=== PATIENT | female | born 1955 | race Caucasian/White ===

== ENCOUNTER 2020-05-07 12:00 | Outpatient (CLI) | payer MEDICARE | END 2020-05-07 23:59 | disposition home health service (06) | LOC: WOU 12:00 | PROVIDERS: ATTEND Podiatrist Foot & Ankle Surgery | DX: T81.89XD Other complications of procedures, not elsewhere classified, subsequent encounter (principal); E11.42 Type 2 diabetes mellitus with diabetic polyneuropathy; E11.69 Type 2 diabetes mellitus with other specified complication; M86.371 Chronic multifocal osteomyelitis, right ankle and foot; Z79.4 Long term (current) use of insulin; Z79.82 Long term (current) use of aspirin | CPT/HCPCS: A6253; G0463 ==

== ENCOUNTER → 2020-05-14 | Outpatient (CLI) | payer MEDICARE | END | disposition home health service (06) | LOC: WOU 12:45 | PROVIDERS: ATTEND Podiatrist Foot & Ankle Surgery | DX: T81.89XD Other complications of procedures, not elsewhere classified, subsequent encounter (principal); E11.42 Type 2 diabetes mellitus with diabetic polyneuropathy; E11.69 Type 2 diabetes mellitus with other specified complication; M86.371 Chronic multifocal osteomyelitis, right ankle and foot; Z79.4 Long term (current) use of insulin; Z79.82 Long term (current) use of aspirin | CPT/HCPCS: 11042; A6253; G0463 ==

== ENCOUNTER 2020-05-30 11:30 | Outpatient (CLI) | payer MEDICARE ==
[2020-05-30] MEDS ORDERED: PHENYLEPHRINE 0.5% NASAL SPRAY 15 ML BOTTLE NS ONE (12:40)
== END 2020-05-30 23:59 | disposition home health service (06) ==
LOC: WOU 11:30
PROVIDERS: ATTEND Podiatrist Foot & Ankle Surgery
DX: T81.89XA Other complications of procedures, not elsewhere classified, initial encounter (principal); T86.828 Other complications of skin graft (allograft) (autograft); E11.42 Type 2 diabetes mellitus with diabetic polyneuropathy; E11.69 Type 2 diabetes mellitus with other specified complication; M86.371 Chronic multifocal osteomyelitis, right ankle and foot; Z79.4 Long term (current) use of insulin; Z79.82 Long term (current) use of aspirin
CPT/HCPCS: 11042; 11045

== ENCOUNTER 2020-06-06 10:00 | Outpatient (CLI) | payer MEDICARE, MEDICAID ==
[2020-06-06] MEDS ORDERED: MUPIROCIN 2% CREAM 15 GM TUBE TP ONE (10:12)
== END 2020-06-06 23:59 | disposition home health service (06) ==
LOC: WOU 10:00
PROVIDERS: ATTEND Podiatrist Foot & Ankle Surgery
DX: T81.89XA Other complications of procedures, not elsewhere classified, initial encounter (principal); E11.42 Type 2 diabetes mellitus with diabetic polyneuropathy; M86.371 Chronic multifocal osteomyelitis, right ankle and foot; E11.69 Type 2 diabetes mellitus with other specified complication; L89.896 Pressure-induced deep tissue damage of other site; Z79.4 Long term (current) use of insulin; Z79.82 Long term (current) use of aspirin
CPT/HCPCS: 11043

== ENCOUNTER 2020-06-06 10:32 | Outpatient (CLI) | payer MEDICARE | END 2020-06-06 23:59 | disposition home or self-care (01) | LOC: LAB 10:32 | PROVIDERS: ATTEND Podiatrist Foot & Ankle Surgery | DX: Z01.812 Encounter for preprocedural laboratory examination (principal); Z20.828 Contact with and (suspected) exposure to other viral communicable diseases | CPT/HCPCS: C9803; U0003 ==

== ENCOUNTER 2020-06-25 13:00 | Outpatient (CLI) | payer MEDICARE ==
[2020-06-25] MEDS ORDERED: COLLAGENASE 5 GM TUBE UD TP ONE (13:52)
== END 2020-06-25 23:59 | disposition home health service (06) ==
LOC: WOU 13:00
PROVIDERS: ATTEND Podiatrist Foot & Ankle Surgery
DX: L89.614 Pressure ulcer of right heel, stage 4 (principal); L89.626 Pressure-induced deep tissue damage of left heel; L89.896 Pressure-induced deep tissue damage of other site; E11.42 Type 2 diabetes mellitus with diabetic polyneuropathy; E11.69 Type 2 diabetes mellitus with other specified complication; M86.371 Chronic multifocal osteomyelitis, right ankle and foot; Z79.4 Long term (current) use of insulin; Z79.82 Long term (current) use of aspirin
CPT/HCPCS: 11043

== ENCOUNTER 2020-07-01 10:32 | Outpatient (CLI) | payer MEDICARE, MEDICAID ==
[2020-07-01] MEDS ORDERED: COLLAGENASE 5 GM TUBE UD TP ONE (10:42)
== END 2020-07-01 23:59 | disposition home health service (06) ==
LOC: WOU 10:32
PROVIDERS: ATTEND Podiatrist Foot & Ankle Surgery
DX: L89.614 Pressure ulcer of right heel, stage 4 (principal); L89.626 Pressure-induced deep tissue damage of left heel; L89.896 Pressure-induced deep tissue damage of other site; E11.42 Type 2 diabetes mellitus with diabetic polyneuropathy; E11.69 Type 2 diabetes mellitus with other specified complication; M86.371 Chronic multifocal osteomyelitis, right ankle and foot; Z79.4 Long term (current) use of insulin; Z79.82 Long term (current) use of aspirin
CPT/HCPCS: 11043

== ENCOUNTER 2020-07-09 13:05 | Outpatient (CLI) | payer MEDICARE, MEDICAID ==
[2020-07-09] MEDS ORDERED: COLLAGENASE 5 GM TUBE UD TP ONE (13:58)
[2020-07-09] MEDS ORDERED: BACI/NEOM/POLY B OINT PKT 1 UDPKT PACKET ONE (13:59)
[2020-07-09] MEDS ORDERED: DEXAMETHASONE SOD PHOSPHATE 10 MG/ML VIAL ONE (20:35)
[2020-07-09] MEDS ORDERED: ACETAMINOPHEN 650 MG/SUPP.RECT RC ONE (20:36)
== END 2020-07-09 23:59 | disposition home health service (06) ==
LOC: WOU 13:05
PROVIDERS: ATTEND Podiatrist Foot & Ankle Surgery
DX: T81.89XD Other complications of procedures, not elsewhere classified, subsequent encounter (principal); L89.622 Pressure ulcer of left heel, stage 2; L89.614 Pressure ulcer of right heel, stage 4; L89.896 Pressure-induced deep tissue damage of other site; E11.42 Type 2 diabetes mellitus with diabetic polyneuropathy; E11.69 Type 2 diabetes mellitus with other specified complication; M86.371 Chronic multifocal osteomyelitis, right ankle and foot; Z79.4 Long term (current) use of insulin; Z79.82 Long term (current) use of aspirin
CPT/HCPCS: 11042; 11043; J1100

== ENCOUNTER 2020-07-16 13:20 | Outpatient (CLI) | payer MEDICARE, MEDICAID ==
[2020-07-16] MEDS ORDERED: UREA 10% -AHA 4% CREAM 57 GM TUBE ONE (13:41)
[2020-07-16] MEDS ORDERED: COLLAGENASE 5 GM TUBE UD TP ONE (14:02)
== END 2020-07-16 23:59 | disposition home health service (06) ==
LOC: WOU 13:20
PROVIDERS: ATTEND Podiatrist Foot & Ankle Surgery
DX: L89.614 Pressure ulcer of right heel, stage 4 (principal); L89.896 Pressure-induced deep tissue damage of other site; T81.89XD Other complications of procedures, not elsewhere classified, subsequent encounter; E11.42 Type 2 diabetes mellitus with diabetic polyneuropathy; E11.69 Type 2 diabetes mellitus with other specified complication; M86.371 Chronic multifocal osteomyelitis, right ankle and foot; Z79.4 Long term (current) use of insulin; Z79.82 Long term (current) use of aspirin
CPT/HCPCS: 11043

== ENCOUNTER 2020-07-23 13:30 | Outpatient (CLI) | payer MEDICARE, MEDICAID ==
[~2020-07-23 13:30] MED LIST: COLLAGENASE 5 GM TUBE UD TP ONE
== END 2020-07-23 23:59 | disposition home health service (06) ==
LOC: WOU 13:30
PROVIDERS: ATTEND Podiatrist Foot & Ankle Surgery
DX: L89.614 Pressure ulcer of right heel, stage 4 (principal); L89.896 Pressure-induced deep tissue damage of other site; T81.89XD Other complications of procedures, not elsewhere classified, subsequent encounter; E11.42 Type 2 diabetes mellitus with diabetic polyneuropathy; Z79.4 Long term (current) use of insulin; Z79.82 Long term (current) use of aspirin
CPT/HCPCS: 11043

== ENCOUNTER 2020-07-28 14:41 | Outpatient (CLI) | payer MEDICARE, MEDICAID | END 2020-07-28 23:59 | disposition home or self-care (01) | LOC: LAB 14:41 | PROVIDERS: ATTEND Podiatrist Foot & Ankle Surgery | DX: Z01.812 Encounter for preprocedural laboratory examination (principal); Z20.822 Contact with and (suspected) exposure to COVID-19 | CPT/HCPCS: 87426; C9803; U0003 ==

== ENCOUNTER 2020-07-31 05:35 | Inpatient (IN) | payer MEDICARE, OTHER ==
[~2020-07-31] VITALS: Ht 170.2 cm; Wt 99.8 kg
[2020-07-31 06:40] LABS: BASOPHILS # (AUTO) 0.1 /CMM (0.0-0.2); EOSINOPHILS % (AUTO) 2.3 % (0.0-6.0); HEMATOCRIT 34 % (33-45); LYMPHOCYTES # (AUTO) 1.9 /CMM (0.8-4.8); LYMPHOCYTES % (AUTO) 12.2 % (20.0-44.0); MEAN CORPUSCULAR HGB CONC 32 g/dl (31.0-36.0); MEAN CORPUSCULAR VOLUME 82 fL (82-100); MONOCYTES # (AUTO) 1.1 /CMM (0.1-1.30); MONOCYTES % (AUTO) 6.9 % (2.0-12.0); NEUTROPHILS % (AUTO) 77.6 % (43.0-81.0); PLATELET COUNT (AUTO) 430 /CMM (150-450); RED BLOOD CELL COUNT(AUTO) 4.19 MIL/uL (4.0-5.2); WHITE BLOOD COUNT (AUTO) 15.5 K/uL (4.3-11.0)
[2020-07-31] MEDS ORDERED: BACITRACIN 50000 UNITS/VIAL ONE (06:58)
[2020-07-31] MEDS ORDERED: LIDOCAINE 1% INJ 50 ML MDV IJ ONE (06:58)
[2020-07-31] MEDS ORDERED: ANESTHESIA TRAY IN PYXIS 1 EA TRAY MC ONE (06:58)
[2020-07-31] MEDS ORDERED: BUPIVACAINE 0.5 % PF 150 MG/30 ML VIAL ONE (06:58)
[2020-07-31 07:26] LABS: CALCIUM, SERUM 8.9 mg/dL (8.5-10.1); CREATININE 1.3 mg/dL (0.6-1.3); POTASSIUM 4.8 mmol/L (3.5-5.1)
[2020-07-31 09:00] VITALS: BP 109/90
[2020-07-31] MEDS ORDERED: CIPROFLOXACIN IV RTU 400 MG in PREMIX 1 EA IV SCH (09:00)
--- NOTE | 2020-07-31 09:10 | NUR ---
RN ADMITTING NOTE Patient arrived on unit by sb around 0900. A/O x4, showing no signs of acute distress or SOB, saturating 98% on room air. Vital signs stable. Patient has no c/o pain or discomfort at this time. S/P right foot debridement with Dr. Smith. Per Dr. Smith to insert new PICC line for the patient. Charge nurse made aware. Notified Dr. Holt for admitting orders and ok for patient to start CCHO diet. Will continue with admission process.
[2020-07-31] MEDS ORDERED: GLIM4TAB37 PO (10:04)
[2020-07-31] MEDS ORDERED: ASPI-1420 PO (10:04)
[2020-07-31] MEDS ORDERED: FOLI0.8T PO (10:04)
[2020-07-31] MEDS ORDERED: HYDR-4077 PO (10:04)
[2020-07-31] MEDS ORDERED: LOSA50TA39 PO (10:04)
[2020-07-31] MEDS ORDERED: CARV25TA2 PO (10:04)
[2020-07-31] MEDS ORDERED: FERR324T PO (10:04)
[2020-07-31] MEDS ORDERED: SIMV-46 PO (10:04)
[2020-07-31] MEDS ORDERED: LEVE250T4 PO (10:04)
[2020-07-31] MEDS ORDERED: METF-441 PO (10:04)
[2020-07-31] MEDS ORDERED: HYDR12.55 PO (10:04)
[2020-07-31] MEDS ORDERED: Z GUARD REMEDY 2 OZ OINT TP PRN (10:30)
[2020-07-31] MEDS ORDERED: MAG HYDROX/AL HYDROX/SIMETH 30 ML UDC PO PRN (10:30)
[2020-07-31] MEDS ORDERED: MAGNESIUM HYDROXIDE 30 ML UDC PO PRN (10:30)
[2020-07-31] MEDS ORDERED: ACETAMINOPHEN 325 MG TABLET PO PRN (10:30)
[2020-07-31] MEDS ORDERED: DEXTROSE 50%-WATER 50 ML DISP.SYRIN IV PRN (10:30)
[2020-07-31] MEDS ORDERED: ONDANSETRON HCL/PF 4 MG/2 ML VIAL IVP PRN (10:30)
[2020-07-31] MEDS: BLOOD SUGAR DIAGNOSTIC 1 EACH STRIP VI SCH ×3 (11:57→21:44)
[2020-07-31] MEDS: INSULIN REGULAR, HUMAN 100 UNIT/ML 3 ML VIAL SQ PRN ×3 (11:58→21:43)
[2020-07-31] MEDS: hydrALAZINE HCL 50 MG TABLET PO SCH ×2 (12:03→16:55)
[2020-07-31 16:00] VITALS: BP 149/74
[2020-07-31] MEDS: VANCOMYCIN 1.25 GM in IV D5W 250 ML IV SCH (16:48)
[2020-07-31] MEDS: LEVETIRACETAM (250 MG) 250 MG TABLET PO SCH (16:55)
[2020-07-31] MEDS: CARVEDILOL 12.5 MG TABLET PO SCH (16:55)
[2020-07-31 20:00] VITALS: BP 152/57
[2020-07-31] MEDS: HYDROCODONE/APAP 5/325MG TABLET PO PRN (21:36)
[2020-07-31] MEDS: SIMVASTATIN 20 MG TABLET PO SCH (21:36)
[2020-07-31] MEDS ORDERED: CEFEPIME 1 GM in IV D5W 50 ML IV SCH (22:00)
[2020-07-31] MEDS ORDERED: CEFEPIME 1 GM VIAL ONE (22:43)
--- NOTE | 2020-08-01 01:52 | NUR ---
vte score of 4 contacted oncall ghulam [facility] . inofrmed of score new order for lovenox recieved and scd to left leg.
[2020-08-01] MEDS: ENOXAPARIN SODIUM 40 MG/0.4 ML DISP.SYRIN SQ SCH ×2 (05:28→21:12)
--- NOTE | 2020-08-01 05:35 | NUR ---
pictures taken of rash under breasts and groin/perineal area added to chart; wound care consult ordered. pt states, "I have been having this problem when i was at the detention they were giving me cream for my rash, id like to have some later if that s possible." will endorse to am shift to bring up when doing am rounds with md.
[2020-08-01] MEDS: BLOOD SUGAR DIAGNOSTIC 1 EACH STRIP VI SCH ×4 (06:40→21:16)
[2020-08-01] MEDS: INSULIN REGULAR, HUMAN 100 UNIT/ML 3 ML VIAL SQ PRN ×3 (06:40→17:55)
[2020-08-01 06:46] LABS: BASOPHILS # (AUTO) 0.1 /CMM (0.0-0.2); BASOPHILS % (AUTO) 0.8 % (0.0-2.0); HEMATOCRIT 34 % (33-45); HEMOGLOBIN 10.8 g/dL (11.5-14.8); LYMPHOCYTES # (AUTO) 1.8 /CMM (0.8-4.8); LYMPHOCYTES % (AUTO) 14.8 % (20.0-44.0); MEAN CORPUSCULAR HGB CONC 32 g/dl (31.0-36.0); MEAN CORPUSCULAR VOLUME 83 fL (82-100); MONOCYTES # (AUTO) 1.3 /CMM (0.1-1.30); MONOCYTES % (AUTO) 10.8 % (2.0-12.0); NEUTROPHILS # (AUTO) 8.6 /CMM (1.8-8.9); NEUTROPHILS % (AUTO) 72.6 % (43.0-81.0); PLATELET COUNT (AUTO) 407 /CMM (150-450); RED BLOOD CELL COUNT(AUTO) 4.04 MIL/uL (4.0-5.2); WHITE BLOOD COUNT (AUTO) 11.9 K/uL (4.3-11.0)
--- NOTE | 2020-08-01 06:50 | NUR ---
RN PM CLOSING NOTE PT IN BED IN NO APPARENT DISTRESS, CALL LIGHT WITHIN REACH. PT DENIES PAIN. REVIEWED POC. WOUND CARE CONSULT PENDING, PT CONSULT PENDING. PT HAS PICC TO RIGHT UPPER ARM FLUSHED WORKING GOOD. DENIES PAIN. RESP EVEN AND UNLABORED WILL ENDORSE TO ONCOMING SHIFT.
[2020-08-01 07:01] LABS: ALBUMIN 2.6 g/dL (3.4-5.0); CREATININE 1.3 mg/dL (0.6-1.3); MAGNESIUM 1.7 mg/dL (1.8-2.4); PHOSPHORUS 3.8 mg/dL (2.5-4.9); POTASSIUM 4.8 mmol/L (3.5-5.1)
--- NOTE | 2020-08-01 07:50 | NUR ---
MS/RN OPENING NOTE RECEIVED PATIENT FROM GOLF BALL COVER TREATER NURSE. PATIENT IS AWAKE IN BED, A/O X4. PATIENT IN NO ACUTE DISTRESS NOTED. PATIENT ON ROOM AIR, TOLERATING WELL. BREATHING EVEN NON LABORED, NO SOB NOTED. YEISON PICC LINE INTACT AND PATENT. SAFETY MEASURES IN PLACE, BED LOCKED AND IN LOWEST POSITION, CALL LIGHT WITHIN REACH. WILL CONTINUE TO MONITOR AND ENSURE SAFETY.
[2020-08-01 08:00] VITALS: BP 140/69
--- NOTE | 2020-08-01 08:02 | NUR ---
WOUND CARE CONSULT: PT PRESENTS WITH RASH TO BREASTFOLDS, GROIN FOLDS, PERINEUM AND BUTTOCKS, PRESENT ON ADMISSION. RECOMMENDATIONS MADE FOR SKIN PROTECTION AND CARE. DISCUSSED WITH NURSING STAFF. DEFER TO DPM CURRENTLY ON CASE FOR WOUND TREATMENT PLAN RT FOOT. MD IN AGREEMENT WITH PLAN OF CARE.
[2020-08-01] MEDS ORDERED: FERROUS GLUCONATE 1 EA TABLET PO SCH (09:00)
[2020-08-01] MEDS: hydrALAZINE HCL 50 MG TABLET PO SCH ×4 (09:05→17:53)
[2020-08-01] MEDS: ASPIRIN EC 81 MG TABLET.DR PO SCH (09:05)
[2020-08-01] MEDS: CARVEDILOL 12.5 MG TABLET PO SCH ×2 (09:06→16:50)
[2020-08-01] MEDS: LOSARTAN POTASSIUM 50 MG TABLET PO SCH (09:07)
[2020-08-01] MEDS: FOLIC ACID 1 MG TABLET PO SCH (09:07)
[2020-08-01] MEDS: HYDROCHLOROTHIAZIDE 25 MG TABLET PO SCH (09:08)
[2020-08-01] MEDS: LEVETIRACETAM (250 MG) 250 MG TABLET PO SCH ×2 (09:08→16:49)
[2020-08-01] MEDS: CLOTRIMAZOLE 1% 15 GM TUBE TP SCH ×2 (09:20→16:49)
[2020-08-01] MEDS: CEFEPIME 2 GM in IV D5W 100 ML IV SCH ×2 (09:51→21:08)
[2020-08-01] MEDS: Magnesium 1GM/D5W 100ML PREMIX 100 ML IV SCH ×2 (10:51→12:03)
[2020-08-01] MEDS: VANCOMYCIN 1.25 GM in IV D5W 250 ML IV SCH (11:19)
--- NOTE | 2020-08-01 13:00 | NUR ---
MS/RN NOTE PT'S HYDRALAZINE ORDER DUE FOR 1300 WAS NOT ADMINISTERED DUE TO STABLE BP, 118/61 hr 80.
[2020-08-01 16:00] VITALS: BP 123/66
--- NOTE | 2020-08-01 18:22 | NUR ---
MS/RN CLOSING NOTE PATIENT IS AWAKE IN BED, A/O X4. PATIENT IN NO ACUTE DISTRESS NOTED. PATIENT ON ROOM AIR, TOLERATING WELL. BREATHING EVEN NON LABORED, NO SOB NOTED. YEISON PICC LINE INTACT AND PATENT. SAFETY MEASURES IN PLACE, BED LOCKED AND IN LOWEST POSITION, CALL LIGHT WITHIN REACH. ALL NEEDS MET THROUGHOUT THE SHIFT. WILL ENDORSE TO LABORER CUTTING TOOL NURSE.
--- NOTE | 2020-08-01 19:30 | NUR ---
MS RN NOTE: PATIENT RESTING IN BED, NO ACUTE DISTRESS NOTED. BREATHING EVEN AND UNLABORED, NO SOB NOTED. PICC LINE TO YEISON IN PLACE. BOOT AND SURGICAL DRESSING TO RIGHT FOOT IN PLACE, NO BLEEDING NOTED. BED LOCKED AND IN LOWEST POSITION, CALL LIGHT IN REACH. WILL CONTINUE TO MONITOR THROUGHOUT SHIFT.
[2020-08-01 20:00] VITALS: BP_SYST 111; BP_SYST 137; BP_DIAS 50; BP_DIAS 74
[2020-08-01] MEDS: SIMVASTATIN 20 MG TABLET PO SCH (21:10)
[2020-08-01] MEDS: *INSULIN REGULAR(HUMULIN R)HUM 100 UNIT/ML VIAL SQ PRN (22:23)
[2020-08-01] MEDS: HYDROCODONE/APAP 5/325MG TABLET PO PRN (22:27)
--- NOTE | 2020-08-01 22:30 | NUR ---
MS RN NOTE: PATIENT BLOOD SUGAR LEVEL 293MG/DL, TO RECEIVE 6 UNITS OF INSULIN PER SLIDING SCALE. NO S/S OF HYPER/HYPOGLYCEMIA NOTED. PATIENT ALSO COMPLAINS OF PAIN TO RIGHT FOOT 7/10, NORCO 5/325MG 1 TAB ORAL GIVEN PER MD ORDER. WILL CONTINUE TO MONITOR THROUGHOUT SHIFT.
--- NOTE | 2020-08-02 06:10 | NUR ---
MS RN NOTE: PATIENT RESTING IN BED, NO ACUTE DISTRESS NOTED. BREATHING EVEN AND UNLABORED, NO SOB NOTED. PICC LINE TO YEISON IN PLACE. BOOT AND SURGICAL DRESSING TO RIGHT FOOT IN PLACE, NO BLEEDING NOTED. PATIENT BLOOD SUGAR LEVEL 207MG/DL, TO RECEIVE 6 UNITS OF INSULIN PER SLIDING SCALE. NO S/S OF HYPER/HYPOGLYCEMIA NOTED. BED LOCKED AND IN LOWEST POSITION, CALL LIGHT IN REACH. WILL ENDORSE TO DAY NURSE TO CONTINUE WITH PLAN OF CARE.
[2020-08-02 06:30] LABS: BASOPHILS # (AUTO) 0.1 /CMM (0.0-0.2); BASOPHILS % (AUTO) 1.1 % (0.0-2.0); EOSINOPHILS % (AUTO) 3.3 % (0.0-6.0); HEMATOCRIT 34 % (33-45); HEMOGLOBIN 10.5 g/dL (11.5-14.8); LYMPHOCYTES # (AUTO) 1.8 /CMM (0.8-4.8); LYMPHOCYTES % (AUTO) 16.9 % (20.0-44.0); MEAN CORPUSCULAR HGB CONC 31 g/dl (31.0-36.0); MEAN CORPUSCULAR VOLUME 85 fL (82-100); MONOCYTES # (AUTO) 1.1 /CMM (0.1-1.30); MONOCYTES % (AUTO) 9.9 % (2.0-12.0); NEUTROPHILS # (AUTO) 7.5 /CMM (1.8-8.9); NEUTROPHILS % (AUTO) 68.8 % (43.0-81.0); PLATELET COUNT (AUTO) 381 /CMM (150-450); RED BLOOD CELL COUNT(AUTO) 3.96 MIL/uL (4.0-5.2); WHITE BLOOD COUNT (AUTO) 10.9 K/uL (4.3-11.0)
[2020-08-02] MEDS: INSULIN REGULAR, HUMAN 100 UNIT/ML 3 ML VIAL SQ PRN ×3 (06:50→18:13)
[2020-08-02] MEDS: BLOOD SUGAR DIAGNOSTIC 1 EACH STRIP VI SCH ×4 (06:50→22:17)
[2020-08-02 07:13] LABS: CALCIUM, SERUM 8.8 mg/dL (8.5-10.1); CREATININE 1.4 mg/dL (0.6-1.3); MAGNESIUM 2.2 mg/dL (1.8-2.4); POTASSIUM 5.1 mmol/L (3.5-5.1)
--- NOTE | 2020-08-02 07:26 | NUR ---
MS RN OPENING NOTE PATIENT IS IN NO ACUTE DISTRESS. NO SOB NOTED. PATIENT IS ON ROOM AIR. TOLERATING WELL. PATIENT IS IN BED, HAS WEAKNESS. BED SAFETY PRECAUTIONS ARE IN PLACE. BED IN THE LOWEST POSITION. SIDE RAILS ARE UP, CALL LIGHT WITHIN REACH, WILL CONTINUE TO MONITOR CLOSELY.
[2020-08-02 08:00] VITALS: BP 131/66
[2020-08-02] MEDS: LEVETIRACETAM (250 MG) 250 MG TABLET PO SCH ×2 (09:49→16:50)
[2020-08-02] MEDS: HYDROCHLOROTHIAZIDE 25 MG TABLET PO SCH (09:49)
[2020-08-02] MEDS: FOLIC ACID 1 MG TABLET PO SCH (09:50)
[2020-08-02] MEDS: ASPIRIN EC 81 MG TABLET.DR PO SCH (09:50)
[2020-08-02] MEDS: hydrALAZINE HCL 50 MG TABLET PO SCH ×3 (09:50→16:50)
[2020-08-02] MEDS: LOSARTAN POTASSIUM 50 MG TABLET PO SCH (09:50)
[2020-08-02] MEDS: CARVEDILOL 12.5 MG TABLET PO SCH ×2 (09:51→16:51)
[2020-08-02] MEDS: CEFEPIME 2 GM in IV D5W 100 ML IV SCH ×2 (09:52→22:09)
[2020-08-02] MEDS: CLOTRIMAZOLE 1% 15 GM TUBE TP SCH ×2 (09:53→16:51)
[2020-08-02] MEDS: VANCOMYCIN 1.25 GM in IV D5W 250 ML IV SCH (11:06)
[2020-08-02] MEDS: MUPIROCIN OINT 2% 22 GM TUBE NS SCH ×2 (12:09→21:00)
[2020-08-02] MEDS ORDERED: NA PHOS,M-B/NA PHOS,DI-BA 1 EA ENEMA RC PRN (14:30)
[2020-08-02] MEDS ORDERED: MAGNESIUM CITRATE 296 ML BOTTLE PO ONE (14:30)
[2020-08-02] MEDS: DOCUSATE SODIUM 250 MG CAPSULE PO SCH (14:39)
[2020-08-02 16:00] VITALS: BP 135/67
--- NOTE | 2020-08-02 19:42 | NUR ---
MS RN OPENING NOTES PATIENT A/O X4; ABLE TO MAKE NEEDS KNOWN. ON ROOM AIR; TOLERATING WELL. YEISON PICCLINE; PATENT AND INTACT. DENIES PAIN OR DISCOMFORT AT THIS TIME. SAFETY MEASURES IN PLACE: BED LOCKED IN LOWEST POSITION; SIDE RAILS UP X2; CALL LIGHT WITHIN EASY REACH. WILL CONTINUE TO MONITOR.
--- NOTE | 2020-08-02 19:48 | NUR ---
MS RN CLOSING NOTE PATIENT IS IN NO ACUTE DISTRESS. NO SOB NOTED. PATIENT IS ON ROOM AIR. TOLERATING WELL. PATIENT IS IN BED, HAS WEAKNESS. BED SAFETY PRECAUTIONS ARE IN PLACE. BED IN THE LOWEST POSITION. SIDE RAILS ARE UP, CALL LIGHT WITHIN REACH. ENDORSE PATIENT TO THE PHYSICAL DESIGN ENGINEER NURSE FOR ANNY.
[2020-08-02 20:00] VITALS: BP_SYST 131; BP_DIAS 63; BP_DIAS 68
[2020-08-02] MEDS: ENOXAPARIN SODIUM 40 MG/0.4 ML DISP.SYRIN SQ SCH (20:49)
[2020-08-02] MEDS: HYDROCODONE/APAP 5/325MG TABLET PO PRN (21:57)
[2020-08-02] MEDS: SIMVASTATIN 20 MG TABLET PO SCH (21:57)
[2020-08-02] MEDS: *INSULIN REGULAR(HUMULIN R)HUM 100 UNIT/ML VIAL SQ PRN (22:52)
[2020-08-03] MEDS: HYDROCODONE/APAP 5/325MG TABLET PO PRN (03:28)
[2020-08-03 06:25] LABS: BASOPHILS # (AUTO) 0.1 /CMM (0.0-0.2); BASOPHILS % (AUTO) 0.6 % (0.0-2.0); EOSINOPHILS % (AUTO) 1.7 % (0.0-6.0); HEMATOCRIT 34 % (33-45); HEMOGLOBIN 10.9 g/dL (11.5-14.8); LYMPHOCYTES # (AUTO) 1.4 /CMM (0.8-4.8); LYMPHOCYTES % (AUTO) 10.2 % (20.0-44.0); MEAN CORPUSCULAR HGB CONC 32 g/dl (31.0-36.0); MEAN CORPUSCULAR VOLUME 83 fL (82-100); MONOCYTES # (AUTO) 0.9 /CMM (0.1-1.30); MONOCYTES % (AUTO) 6.5 % (2.0-12.0); NEUTROPHILS # (AUTO) 11.3 /CMM (1.8-8.9); PLATELET COUNT (AUTO) 433 /CMM (150-450); RED BLOOD CELL COUNT(AUTO) 4.12 MIL/uL (4.0-5.2); WHITE BLOOD COUNT (AUTO) 13.9 K/uL (4.3-11.0)
[2020-08-03 06:52] LABS: CALCIUM, SERUM 8.8 mg/dL (8.5-10.1); CREATININE 1.1 mg/dL (0.6-1.3); POTASSIUM 5.9 mmol/L (3.5-5.1)
[2020-08-03] MEDS: BLOOD SUGAR DIAGNOSTIC 1 EACH STRIP VI SCH ×4 (06:52→21:35)
[2020-08-03] MEDS: INSULIN REGULAR, HUMAN 100 UNIT/ML 3 ML VIAL SQ PRN ×3 (06:55→17:38)
--- NOTE | 2020-08-03 07:56 | NUR ---
MS RN CLOSING NOTES PATIENT A/O X4; ABLE TO MAKE NEEDS KNOWN. ON ROOM AIR; TOLERATING WELL. YEISON PICCLINE; PATENT AND INTACT. SAFETY MEASURES IN PLACE: BED LOCKED IN LOWEST POSITION; SIDE RAILS UP X2; CALL LIGHT WITHIN EASY REACH. ENDORSED ANNY TO ONCOMING MORNING RN
[2020-08-03 08:28] VITALS: BP 149/67
[2020-08-03] MEDS ORDERED: SODIUM POLYSTYRENE SULFONATE 15 G/60 ML BOTTLE PO ONE (08:30)
[2020-08-03] MEDS ORDERED: FUROSEMIDE 40 MG TABLET PO ONE (09:00)
[2020-08-03] MEDS: DOCUSATE SODIUM 250 MG CAPSULE PO SCH (09:03)
[2020-08-03] MEDS: CARVEDILOL 12.5 MG TABLET PO SCH ×2 (09:03→17:51)
[2020-08-03] MEDS: FOLIC ACID 1 MG TABLET PO SCH (09:04)
[2020-08-03] MEDS: HYDROCHLOROTHIAZIDE 25 MG TABLET PO SCH (09:04)
[2020-08-03] MEDS: LEVETIRACETAM (250 MG) 250 MG TABLET PO SCH ×2 (09:04→17:51)
[2020-08-03] MEDS: hydrALAZINE HCL 50 MG TABLET PO SCH ×3 (09:05→17:50)
[2020-08-03] MEDS: ASPIRIN EC 81 MG TABLET.DR PO SCH (09:05)
[2020-08-03] MEDS: MUPIROCIN OINT 2% 22 GM TUBE NS SCH ×2 (09:16→22:08)
[2020-08-03] MEDS: CLOTRIMAZOLE 1% 15 GM TUBE TP SCH ×2 (09:18→17:52)
[2020-08-03] MEDS: CEFEPIME 2 GM in IV D5W 100 ML IV SCH ×2 (10:54→21:35)
[2020-08-03] MEDS: VANCOMYCIN 1 GM in IV D5W 250 ML IV SCH (11:41)
[2020-08-03 13:52] LABS: CALCIUM, SERUM 9.1 mg/dL (8.5-10.1); CREATININE 1.2 mg/dL (0.6-1.3); POTASSIUM 5.1 mmol/L (3.5-5.1)
[2020-08-03 16:05] VITALS: BP 132/68
--- NOTE | 2020-08-03 18:51 | NUR ---
MS RN OPENING NOTES PATIENT A/O X4; ABLE TO MAKE NEEDS KNOWN. ON ROOM AIR; TOLERATING WELL. YEISON PICCLINE; PATENT AND INTACT. C/O MILD PAIN; WILL DO PAIN MANAGEMENT ORDERED. SAFETY MEASURES IN PLACE: BED LOCKED IN LOWEST POSITION; SIDE RAILS UP X2; CALL LIGHT WITHIN EASY REACH. WILL CONTINUE TO MONITOR.
--- NOTE | 2020-08-03 19:59 | NUR ---
MS RN CLOSING NOTE PATIENT IS IN NO ACUTE DISTRESS. NO SOB NOTED. PATIENT IS ON ROOM AIR. TOLERATING WELL. PATIENT IS IN BED, HAS WEAKNESS. BED SAFETY PRECAUTIONS ARE IN PLACE. BED IN THE LOWEST POSITION. SIDE RAILS ARE UP, CALL LIGHT WITHIN REACH. ENDORSE PATIENT TO ENGINE LATHE SET UP OPERATOR NURSE FO ANNY.
[2020-08-03 20:00] VITALS: BP 101/53
[2020-08-03] MEDS: SIMVASTATIN 20 MG TABLET PO SCH (21:28)
[2020-08-03] MEDS: ENOXAPARIN SODIUM 40 MG/0.4 ML DISP.SYRIN SQ SCH (21:29)
[2020-08-03] MEDS: *INSULIN REGULAR(HUMULIN R)HUM 100 UNIT/ML VIAL SQ PRN (21:34)
[2020-08-04] MEDS: BLOOD SUGAR DIAGNOSTIC 1 EACH STRIP VI SCH ×4 (07:28→23:22)
[2020-08-04 07:30] LABS: CALCIUM, SERUM 9.2 mg/dL (8.5-10.1); CREATININE 1.3 mg/dL (0.6-1.3); POTASSIUM 4.4 mmol/L (3.5-5.1)
[2020-08-04] MEDS: INSULIN REGULAR, HUMAN 100 UNIT/ML 3 ML VIAL SQ PRN ×3 (07:31→17:15)
--- NOTE | 2020-08-04 07:36 | NUR ---
MS/RN OPENING NOTES RECEIVED PATIENT ON BED, AWAKE ALERT AND ORIENTED X4. PATIENT IS ON ROOM AIR SATURATING WELL. PATIENT IN NO APPARENT RESPIRATORY DISTRESS NOTED. NO COMPLAINED OF PAIN AT THIS TIME. WILL CONTINUE TO MONITOR.
[2020-08-04 08:00] VITALS: BP 140/66
--- NOTE | 2020-08-04 08:27 | NUR ---
MS RN CLOSING NOTES PATIENT A/O X4; ABLE TO MAKE NEEDS KNOWN. ON ROOM AIR; TOLERATING WELL. YEISON PICCLINE; PATENT AND INTACT. SAFETY MEASURES IN PLACE: BED LOCKED IN LOWEST POSITION; SIDE RAILS UP X2; CALL LIGHT WITHIN EASY REACH. ALL NEEDS MET AT THIS TIME. ENDORSED ANNY TO ONCOMING MORNING RN.
[2020-08-04] MEDS: LEVETIRACETAM (250 MG) 250 MG TABLET PO SCH ×2 (08:32→16:35)
[2020-08-04] MEDS: DOCUSATE SODIUM 250 MG CAPSULE PO SCH (08:32)
[2020-08-04] MEDS: ASPIRIN EC 81 MG TABLET.DR PO SCH (08:33)
[2020-08-04] MEDS: FOLIC ACID 1 MG TABLET PO SCH (08:33)
[2020-08-04] MEDS: hydrALAZINE HCL 50 MG TABLET PO SCH ×3 (08:35→16:35)
[2020-08-04] MEDS: CARVEDILOL 12.5 MG TABLET PO SCH ×2 (08:35→16:34)
[2020-08-04] MEDS: HYDROCHLOROTHIAZIDE 25 MG TABLET PO SCH (08:36)
[2020-08-04] MEDS: CLOTRIMAZOLE 1% 15 GM TUBE TP SCH ×2 (08:36→16:36)
--- NOTE | 2020-08-04 09:03 | NUR ---
MS/RN NOTES Instructions <KEEP SURGICAL DRESSING IN PLACE, TO BE CHANGED BY DPM ONLY. CALL DPM WILLA PETTIT AT [phone]. FOR ANY PROBLEMS WITH THE DRESSING/RIGHT FOOT. PER ANTHONY. NOTED AND CARRIED OUT.
[2020-08-04] MEDS: MUPIROCIN OINT 2% 22 GM TUBE NS SCH ×2 (09:11→21:52)
[2020-08-04] MEDS: CEFEPIME 2 GM in IV D5W 100 ML IV SCH ×2 (09:22→21:06)
[2020-08-04] MEDS: VANCOMYCIN 1 GM in IV D5W 250 ML IV SCH (10:09)
[2020-08-04 16:00] VITALS: BP 123/61
--- NOTE | 2020-08-04 19:03 | NUR ---
MS/RN CLOSING NOTES PATIENT IS ON BED,AWAKE ALERT AND ORIENTED X4. PATIENT IS ON ROOM AIR SATURATION 96%. PATIENT IN NO APPARENT RESPIRATORY DISTRESS NOTED. NO COMPLAINED OF PAIN NOTED AT THIS TIME. SEEN AND EXAMINED BY MD WITH ORDERS MADE AND CARRIED OUT. ALL DUE MEDICATIONS WAS GIVEN. SAFETY PRECAUTIONS WAS IN PLACED. BED IN LOWEST POSITION AND LOCKED. SIDE RAILS WAS LOCKED X2. WILL ENDORSED TO POWER GENERATION EQUIPMENT REPAIRER FOR ANNY.
--- NOTE | 2020-08-04 19:25 | NUR ---
RN NOTES PATIENT IS ON BED,AWAKE ALERT AND ORIENTED X4. PATIENT IS ON ROOM AIR SATURATION 96%. PATIENT IN NO APPARENT RESPIRATORY DISTRESS NOTED. NO COMPLAINED OF PAIN NOTED AT THIS TIME. SAFETY PRECAUTIONS WAS IN PLACED. BED IN LOWEST POSITION AND LOCKED. SIDE RAILS WAS LOCKED X2. WILL CONTINUE TO MONITOR.
[2020-08-04 20:00] VITALS: BP 112/58
[2020-08-04] MEDS: SIMVASTATIN 20 MG TABLET PO SCH (21:06)
[2020-08-04] MEDS: ENOXAPARIN SODIUM 40 MG/0.4 ML DISP.SYRIN SQ SCH (21:10)
[2020-08-04] MEDS: *INSULIN REGULAR(HUMULIN R)HUM 100 UNIT/ML VIAL SQ PRN (22:49)
--- NOTE | 2020-08-05 03:20 | NUR ---
RN NOTES PT REPORTED FEELING NAUSEATED GAVE ZOFRAN IV WILL CONTINUE TO MONITOR.
[2020-08-05 06:36] LABS: BASOPHILS # (AUTO) 0.2 /CMM (0.0-0.2); EOSINOPHILS % (AUTO) 1.9 % (0.0-6.0); HEMATOCRIT 33 % (33-45); HEMOGLOBIN 10.7 g/dL (11.5-14.8); LYMPHOCYTES # (AUTO) 2.3 /CMM (0.8-4.8); LYMPHOCYTES % (AUTO) 13.6 % (20.0-44.0); MEAN CORPUSCULAR HGB CONC 32 g/dl (31.0-36.0); MEAN CORPUSCULAR VOLUME 83 fL (82-100); MONOCYTES # (AUTO) 1.2 /CMM (0.1-1.30); MONOCYTES % (AUTO) 7.1 % (2.0-12.0); NEUTROPHILS # (AUTO) 12.8 /CMM (1.8-8.9); NEUTROPHILS % (AUTO) 76.4 % (43.0-81.0); PLATELET COUNT (AUTO) 412 /CMM (150-450); RED BLOOD CELL COUNT(AUTO) 4.03 MIL/uL (4.0-5.2); WHITE BLOOD COUNT (AUTO) 16.8 K/uL (4.3-11.0)
[2020-08-05] MEDS: *INSULIN REGULAR(HUMULIN R)HUM 100 UNIT/ML VIAL SQ PRN ×2 (06:45→21:59)
[2020-08-05 06:51] LABS: CALCIUM, SERUM 9.4 mg/dL (8.5-10.1); CREATININE 1.4 mg/dL (0.6-1.3); POTASSIUM 4.1 mmol/L (3.5-5.1)
[2020-08-05] MEDS: BLOOD SUGAR DIAGNOSTIC 1 EACH STRIP VI SCH ×4 (07:06→21:54)
[2020-08-05 08:00] VITALS: BP 151/70
[2020-08-05] MEDS: DOCUSATE SODIUM 250 MG CAPSULE PO SCH (09:03)
[2020-08-05] MEDS: LEVETIRACETAM (250 MG) 250 MG TABLET PO SCH ×2 (09:03→17:30)
[2020-08-05] MEDS: CARVEDILOL 12.5 MG TABLET PO SCH ×2 (09:04→17:29)
[2020-08-05] MEDS: hydrALAZINE HCL 50 MG TABLET PO SCH ×3 (09:06→17:30)
[2020-08-05] MEDS: FOLIC ACID 1 MG TABLET PO SCH (09:07)
[2020-08-05] MEDS: ASPIRIN EC 81 MG TABLET.DR PO SCH (09:07)
[2020-08-05] MEDS: HYDROCHLOROTHIAZIDE 25 MG TABLET PO SCH (09:07)
[2020-08-05] MEDS: CLOTRIMAZOLE 1% 15 GM TUBE TP SCH ×2 (09:51→17:32)
[2020-08-05] MEDS: CEFEPIME 2 GM in IV D5W 100 ML IV SCH ×2 (09:51→21:01)
[2020-08-05] MEDS: MUPIROCIN OINT 2% 22 GM TUBE NS SCH ×2 (09:51→21:18)
[2020-08-05] MEDS: VANCOMYCIN 1 GM in IV D5W 250 ML IV SCH (11:00)
[2020-08-05 11:09] LABS: COLOR,URINE YELLOW (YELLOW); PH,URINE 5.5 (5.0-8.0); PROTEIN,URINE 30 mg/dl (NEGATIVE); UGLUCOSE NEGATIVE (NEGATIVE)
[2020-08-05 11:10] LABS: BILIRUBIN,URINE NEGATIVE (NEGATIVE); LEUKOCYTE ESTERASE ,URINE SMALL (NEGATIVE); NITRITE, URINE NEGATIVE (NEGATIVE); UROBILINOGEN,URINE 0.2 EU/dL (0.2)
[2020-08-05 11:40] LABS: WBC,URINE 21-50 /HPF (0-3)
[2020-08-05 11:41] LABS: BACTERIA,URINE Few /HPF (None Seen); RBC,URINE 0-2 /HPF (0-2); SQUAMOUS EPITHELIAL CELL,UR Few /HPF (None Seen); YEAST,URINE Few /HPF (None Seen)
[2020-08-05] MEDS: INSULIN REGULAR, HUMAN 100 UNIT/ML 3 ML VIAL SQ PRN ×2 (11:57→17:19)
[2020-08-05 12:03] LABS: CREATININE, URINE 53.1 MG/DL (30.0-125.0); URINE TOTAL PROTEIN 73.5 mg/dL (0-11.9)
--- NOTE | 2020-08-05 12:25 | NUR ---
MS/RN NOTES BP 109/53 P 83 HYDRALAZINE 50MG 1 TAB P.O. WAS NOT GIVEN. WILL CONTINUE TO MONITOR.
[2020-08-05 13:24] LABS: EOSINOPHIL,URINE None Seen
[2020-08-05 16:00] VITALS: BP 127/66
--- NOTE | 2020-08-05 18:45 | NUR ---
MS/RN CLOSING NOTES PATIENT IS ON BED,AWAKE ALERT AND ORIENTED X4. PATIENT IS ON ROOM AIR SATURATION 94%. PATIENT IN NO APPARENT RESPIRATORY DISTRESS NOTED. NO COMPLAINED OF PAIN NOTED AT THIS TIME. SEEN AND EXAMINED BY MD WITH ORDERS MADE AND CARRIED OUT. ALL DUE MEDICATIONS WAS GIVEN. SAFETY PRECAUTIONS WAS IN PLACED. BED IN LOWEST POSITION AND LOCKED. SIDE RAILS WAS LOCKED X2. WILL ENDORSED TO EMT INTERMEDIATE FOR ANNY.
--- NOTE | 2020-08-05 19:30 | NUR ---
RN NOTES PATIENT IS IN BED,AWAKE ALERT AND ORIENTED X4. PATIENT IS ON ROOM AIR SATURATION 94% .NO COMPLAINS OF PAIN NOTED. ALL NURSING NEEDS MET AT THIS TIME.SAFETY PRECAUTIONS WAS IN PLACED. BED IN LOWEST POSITION AND LOCKED. SIDE RAILS WAS LOCKED X2. WILL CONTINUE TO MONITOR.
[2020-08-05 20:40] VITALS: BP 112/58
[2020-08-05] MEDS: ENOXAPARIN SODIUM 40 MG/0.4 ML DISP.SYRIN SQ SCH (21:08)
[2020-08-05] MEDS: SIMVASTATIN 20 MG TABLET PO SCH (21:19)
[2020-08-05] MEDS ORDERED: INSULIN GLARGINE, 100 UNIT/ML CARTRIDGE SQ SCH (22:00)
[2020-08-05] MEDS: VANCOMYCIN HCL 0.75 GM in IV D5W 250 ML IV SCH (22:04)
[2020-08-06] MEDS: BLOOD SUGAR DIAGNOSTIC 1 EACH STRIP VI SCH ×4 (06:27→21:26)
[2020-08-06] MEDS: INSULIN REGULAR, HUMAN 100 UNIT/ML 3 ML VIAL SQ PRN ×3 (06:29→17:42)
[2020-08-06 06:42] LABS: BASOPHILS # (AUTO) 0.2 /CMM (0.0-0.2); BASOPHILS % (AUTO) 1.3 % (0.0-2.0); EOSINOPHILS % (AUTO) 2.3 % (0.0-6.0); HEMATOCRIT 33 % (33-45); HEMOGLOBIN 10.4 g/dL (11.5-14.8); LYMPHOCYTES # (AUTO) 1.9 /CMM (0.8-4.8); LYMPHOCYTES % (AUTO) 15.5 % (20.0-44.0); MEAN CORPUSCULAR HGB CONC 32 g/dl (31.0-36.0); MEAN CORPUSCULAR VOLUME 83 fL (82-100); MONOCYTES % (AUTO) 8.3 % (2.0-12.0); NEUTROPHILS # (AUTO) 8.9 /CMM (1.8-8.9); NEUTROPHILS % (AUTO) 72.6 % (43.0-81.0); PLATELET COUNT (AUTO) 406 /CMM (150-450); WHITE BLOOD COUNT (AUTO) 12.3 K/uL (4.3-11.0)
--- NOTE | 2020-08-06 06:54 | NUR ---
RN NOTES PATIENT IS IN BED,AWAKE ALERT AND ORIENTED X4. PATIENT IS ON ROOM AIR SATURATION 94% .NO COMPLAINS OF PAIN NOTED. BS CHECKED AN INSULIN COVERAGE PROVIDED.ALL NURSING NEEDS MET AT THIS TIME.SAFETY PRECAUTIONS WAS IN PLACED. BED IN LOWEST POSITION AND LOCKED. SIDE RAILS WAS LOCKED X2.WILL ENDORSE TO DAY SHIFT.
[2020-08-06 07:12] LABS: ALBUMIN 2.6 g/dL (3.4-5.0); BILIRUBIN,TOTAL 0.5 mg/dL (0.2-1.0); CREATININE 1.6 mg/dL (0.6-1.3); MAGNESIUM 2.1 mg/dL (1.8-2.4); PHOSPHORUS 3.8 mg/dL (2.5-4.9); POTASSIUM 4.1 mmol/L (3.5-5.1); TOTAL PROTEIN, SERUM 7.1 g/dL (6.4-8.2)
--- NOTE | 2020-08-06 07:30 | NUR ---
MS/RN OPENING NOTE Received patient awake in bed, A&O x 4, easily arousable to touch and verbal stimulation. Denies any pain/discomfort at this time. Breathing even and non-labored on RA, no SOB noted. No cardiac distress noted. YEISON PICC line, patent and intact, and flushing well. Bed locked to its lowest position, side rails x 2 up, call light in hand. Will continue with current medical management.
[2020-08-06 08:00] VITALS: BP 137/70
[2020-08-06] MEDS: LEVETIRACETAM (250 MG) 250 MG TABLET PO SCH ×2 (08:46→17:38)
[2020-08-06] MEDS: DOCUSATE SODIUM 250 MG CAPSULE PO SCH (08:46)
[2020-08-06] MEDS: ASPIRIN EC 81 MG TABLET.DR PO SCH (08:46)
[2020-08-06] MEDS: FOLIC ACID 1 MG TABLET PO SCH (08:46)
[2020-08-06] MEDS: HYDROCHLOROTHIAZIDE 25 MG TABLET PO SCH (08:46)
[2020-08-06] MEDS: CARVEDILOL 12.5 MG TABLET PO SCH ×2 (08:47→17:38)
[2020-08-06] MEDS: hydrALAZINE HCL 50 MG TABLET PO SCH ×3 (08:48→17:38)
[2020-08-06] MEDS: MUPIROCIN OINT 2% 22 GM TUBE NS SCH ×2 (08:48→21:09)
[2020-08-06] MEDS: CLOTRIMAZOLE 1% 15 GM TUBE TP SCH ×2 (08:49→17:38)
[2020-08-06] MEDS: CEFEPIME 2 GM in IV D5W 100 ML IV SCH ×2 (09:00→21:15)
--- NOTE | 2020-08-06 19:27 | NUR ---
MS/RN CLOSING NOTE Patient awake in bed, A&O x 4, easily arousable to touch and verbal stimulation. All needs met are met and attended to. No complaints of any pain/discomfort at this time. Breathing even and non-labored on RA, no SOB noted. No cardiac distress noted. YEISON PICC line, patent and intact, and flushing well. Fall precautions maintained. Will endorse to night assistant nurse.
--- NOTE | 2020-08-06 19:30 | NUR ---
MS/RN OPENING NOTE Received patient awake in bed, A&O x 4, able to verbalize needs. Denies any pain or discomfort at this time. Breathing even and non-labored on room air, no SOB noted. YEISON PICC line, patent and intact, and flushing well. Bed locked to its lowest position, side rails x 2 up, call light within reach. Will continue to monitor.
[2020-08-06 20:00] VITALS: BP 140/69
[2020-08-06] MEDS: HYDROCODONE/APAP 5/325MG TABLET PO PRN (21:05)
[2020-08-06] MEDS: ENOXAPARIN SODIUM 40 MG/0.4 ML DISP.SYRIN SQ SCH (21:07)
[2020-08-06] MEDS: SIMVASTATIN 20 MG TABLET PO SCH (21:10)
[2020-08-06] MEDS ORDERED: INSULIN GLARGINE, 100 UNIT/ML CARTRIDGE SQ SCH (22:00)
[2020-08-06] MEDS: *INSULIN REGULAR(HUMULIN R)HUM 100 UNIT/ML VIAL SQ PRN (22:04)
[2020-08-06] MEDS: VANCOMYCIN HCL 0.75 GM in IV D5W 250 ML IV SCH (22:12)
--- NOTE | 2020-08-07 03:52 | NUR ---
-RN NOTES: CALLED TO MY ATTENTION BY JAIRO WHILE RENDERING CARE TO THE PATIENT ON HER LEFT HEEL. UPON ASSESSMENT, NOTED WITH LEFT HEEL WOUND, SKIN IS INTACT, HEEL OFFLOADING TOLERATED. WOUND CARE CONSULT TRIGGERED. DR. CARRILLO NOTIFIED. WILL CONTINUE TO MONITOR FOR ANY SKIN CHANGES EVERY SHIFT AND PRN. Addendum: 08/07/20 at 0606 by NANCY CRENSHAW RN CHARGE NURSE MADE AWARE
--- NOTE | 2020-08-07 06:07 | NUR ---
MS/RN CLOSING NOTES: Patient in bed asleep, easily arousable. A/Ox4, no s/sx of acute respiratory distress noted. Denies pain or discomfort at this time. Breathing even and non-labored, on room air. YEISON PICC line, patent and intact and flushing well. Safety precautions maintained. Bed in locked and bed in lowest position. Side rails up x2. Call light within reach. Will endorse to day shift nurse for continuity of care.
[2020-08-07] MEDS: INSULIN REGULAR, HUMAN 100 UNIT/ML 3 ML VIAL SQ PRN ×3 (06:34→17:17)
[2020-08-07] MEDS: BLOOD SUGAR DIAGNOSTIC 1 EACH STRIP VI SCH ×3 (06:35→17:25)
--- NOTE | 2020-08-07 07:37 | NUR ---
MS RN OPENING NOTE PATIENT IS IN BED RESTING. PATIENT IS IN NO ACUTE DISTRESS. NO SOB NOTED. PATIENT IS ON ROOM AIR. TOLERATING WELL. PATIENT IS IN BED, HAS WEAKNESS. BED SAFETY PRECAUTIONS ARE IN PLACE. BED IN THE LOWEST POSITION. SIDE RAILS ARE UP, CALL LIGHT WITHIN REACH, WILL CONTINUE TO MONITOR CLOSELY.
[2020-08-07 08:00] VITALS: BP 142/57
[2020-08-07 08:16] LABS: CALCIUM, SERUM 9.1 mg/dL (8.5-10.1); CREATININE 1.5 mg/dL (0.6-1.3); POTASSIUM 4.2 mmol/L (3.5-5.1)
[2020-08-07] MEDS: DOCUSATE SODIUM 250 MG CAPSULE PO SCH (08:20)
[2020-08-07] MEDS: ASPIRIN EC 81 MG TABLET.DR PO SCH (08:20)
[2020-08-07] MEDS: FOLIC ACID 1 MG TABLET PO SCH (08:20)
[2020-08-07] MEDS: LEVETIRACETAM (250 MG) 250 MG TABLET PO SCH ×2 (08:20→17:24)
[2020-08-07] MEDS: HYDROCHLOROTHIAZIDE 25 MG TABLET PO SCH (08:21)
[2020-08-07] MEDS: hydrALAZINE HCL 50 MG TABLET PO SCH ×3 (08:21→17:25)
[2020-08-07] MEDS: CARVEDILOL 12.5 MG TABLET PO SCH ×2 (08:22→17:25)
[2020-08-07] MEDS: MUPIROCIN OINT 2% 22 GM TUBE NS SCH (08:42)
[2020-08-07] MEDS: CLOTRIMAZOLE 1% 15 GM TUBE TP SCH ×2 (09:57→17:00)
[2020-08-07] MEDS: CEFEPIME 2 GM in IV D5W 100 ML IV SCH (10:04)
[2020-08-07] MEDS ORDERED: DAPTOMYCIN 500 MG in IV NS 0.9% 50 ML IV SCH (10:30)
[2020-08-07] MEDS ORDERED: INSU100V28 SQ (11:44)
[2020-08-07] MEDS ORDERED: ENOX40DI SQ (11:44)
[2020-08-07] MEDS ORDERED: DAPT500V IV (11:44)
[2020-08-07] MEDS ORDERED: CEFE2FRO IV (11:44)
[2020-08-07] MEDS ORDERED: DOCU250C14 PO (11:44)
[2020-08-07] MEDS ORDERED: Insulin Glargine,Hum SQ (11:44)
[2020-08-07] MEDS ORDERED: FLUC200T PO (11:47)
[2020-08-07] MEDS ORDERED: FLUCONAZOLE (100 MG) 100 MG TABLET PO ONE (15:00)
[2020-08-07 17:25] VITALS: BP 139/76
--- NOTE | 2020-08-07 18:00 | NUR ---
MS ICE HANDLER NOTE PATIENT IS MEDICALLY STABLE FOR DISCHARGE. PATIENT IS IN NO ACUTE DISTRESS. NO SOB NOTED. VITAL SIGNS ARE WITHIN NORMAL LIMITS. DISCHARGE INSTRUCTIONS PROVIDED. PATIENT VERBALIZED UNDERSTANDING. SKIN CARE PROVIDED. PICTURES TAKEN AND PLACED IN THE CHART. PATIENT HAS A PICC LINE PLACED FOR ANTIBIOTIC THERAPY. PATIENT IS BEING TRANSFERRED TO [facility]. REPORT WAS GIVEN TO LAUREL OLMEDO. PATIENTS ID BAND REMOVED. PATIENT IS BEING PICKED UP BY TWO TECHNICAL SERVICE REP. MD IS AWARE OF DISCHARGE.
[2020-08-07] MEDS ORDERED: VANCOMYCIN HCL 0.75 GM in IV D5W 250 ML IV SCH (22:00)
[2020-08-08] MEDS ORDERED: FLUCONAZOLE (100 MG) 100 MG TABLET PO SCH (09:00)
== END 2020-08-07 18:33 | DRG 853 ==
LOC: DS 05:35 → MED 08:36
PROVIDERS: ADMIT Internal Medicine; ATTEND Nurse Practitioner Acute Care
PROC: 0JBQ0ZZ Excision of Right Foot Subcutaneous Tissue and Fascia, Open Approach (ICD-10-PCS; principal; 2020-07-31)
PROC: 0HRMXK3 Replacement of Right Foot Skin with Nonautologous Tissue Substitute, Full Thickness, External Approach (ICD-10-PCS; 2020-07-31)
DX: A41.9 Sepsis, unspecified organism (principal); L89.613 Pressure ulcer of right heel, stage 3; N17.0 Acute kidney failure with tubular necrosis; M86.8X7 Other osteomyelitis, ankle and foot; L03.115 Cellulitis of right lower limb; D68.69 Other thrombophilia; N39.0 Urinary tract infection, site not specified; E11.69 Type 2 diabetes mellitus with other specified complication; E11.621 Type 2 diabetes mellitus with foot ulcer; I10 Essential (primary) hypertension; G40.909 Epilepsy, unspecified, not intractable, without status epilepticus; E78.5 Hyperlipidemia, unspecified; E66.9 Obesity, unspecified; Z68.34 Body mass index [BMI] 34.0-34.9, adult; E11.51 Type 2 diabetes mellitus with diabetic peripheral angiopathy without gangrene; L97.519 Non-pressure chronic ulcer of other part of right foot with unspecified severity; B96.1 Klebsiella pneumoniae [K. pneumoniae] as the cause of diseases classified elsewhere; N13.9 Obstructive and reflux uropathy, unspecified; Z22.322 Carrier or suspected carrier of Methicillin resistant Staphylococcus aureus; E11.65 Type 2 diabetes mellitus with hyperglycemia; Z79.84 Long term (current) use of oral hypoglycemic drugs
CPT/HCPCS: 36415; 71045-TC; 80048-TC; 80053-TC; 80202-TC; 81001; 82040-TC; 82570-TC; 82962-TC; 83735-TC; 84100-TC; 84155-TC; 84300-TC; 85025-TC; 85610-TC; 85652-TC; 85730-TC; 86140-TC; 86850-TC; 87040-TC; 87070-TC; 87081-TC; 87086-TC; 87186-TC; 97110-TC; 97112-TC; 97530-TC; A4216; A6209; A6253; C1751; G0378; J0690; J0692; J0744; J1100; J1650; J1815; J2405; J3370; J3475; J3490; J7050; J7060; Q4100; U0003

== ENCOUNTER 2020-08-15 09:20 | Outpatient (CLI) | payer MEDICARE, OTHER ==
[~2020-08-15 09:20] MED LIST changes: +ASPI-1420 PO; +CARV25TA2 PO; +CEFE2FRO IV; -COLLAGENASE 5 GM TUBE UD TP ONE; +DAPT500V IV; +DOCU250C14 PO; +ENOX40DI SQ; +FERR324T PO; +FLUC200T PO; +FOLI0.8T PO; +HYDR-4077 PO; +HYDR12.55 PO; +INSU100V28 SQ; +Insulin Glargine,Hum SQ; +LEVE250T4 PO; +LOSA50TA39 PO; +SIMV-46 PO
== END 2020-08-15 23:59 | disposition home health service (06) ==
LOC: WOU 09:20
PROVIDERS: ATTEND Podiatrist Foot & Ankle Surgery
DX: L89.614 Pressure ulcer of right heel, stage 4 (principal); L89.622 Pressure ulcer of left heel, stage 2; L89.896 Pressure-induced deep tissue damage of other site; T81.89XD Other complications of procedures, not elsewhere classified, subsequent encounter; E11.42 Type 2 diabetes mellitus with diabetic polyneuropathy; E11.69 Type 2 diabetes mellitus with other specified complication; M86.371 Chronic multifocal osteomyelitis, right ankle and foot; Z79.4 Long term (current) use of insulin; Z79.82 Long term (current) use of aspirin
CPT/HCPCS: 11042

== ENCOUNTER 2020-08-29 10:30 | Outpatient (CLI) | payer MEDICARE, OTHER ==
[~2020-08-29 10:30] MED LIST changes: -FOLI0.8T PO; +FOLI0.8T3 PO
== END 2020-08-29 23:59 | disposition home health service (06) ==
LOC: WOU 10:30
PROVIDERS: ATTEND Podiatrist Foot & Ankle Surgery
DX: L89.624 Pressure ulcer of left heel, stage 4 (principal); L89.614 Pressure ulcer of right heel, stage 4; E11.42 Type 2 diabetes mellitus with diabetic polyneuropathy; E11.69 Type 2 diabetes mellitus with other specified complication; M86.371 Chronic multifocal osteomyelitis, right ankle and foot; T81.89XD Other complications of procedures, not elsewhere classified, subsequent encounter; L89.896 Pressure-induced deep tissue damage of other site; Z79.4 Long term (current) use of insulin; Z79.82 Long term (current) use of aspirin
CPT/HCPCS: 11042; A6209

== ENCOUNTER 2021-05-26 17:50 | Emergency (ER) | payer MEDICARE, OTHER ==
[~2021-05-26] VITALS: Ht 167.6 cm; Wt 95.7 kg
--- NOTE | 2021-05-26 17:50 | NUR ---
PT [facility] C/O L BUTTOCK WOUND. FOR SCHEDULED SURGERY FOR JUL 2021. PT IS AAOX2, NOT IN RESPIRATORY DISTRESS, HOOKED TO FLOW NURSE, KEPT RESTED AND COMFORTABLE. WILL CONTINUE TO MONITOR.
--- NOTE | 2021-05-26 19:05 | NUR ---
PT SITTING QUIETLY IN BED, ATTACHED TO MONITOR AND POX. VSS
--- NOTE | 2021-05-26 20:46 | NUR ---
Patient is resting comfortably in bed with eyes closed. Easily aroused. VSS
--- NOTE | 2021-05-26 21:04 | NUR ---
WAS INFORMED BY CAROLANN CARRILLO (WHO WAS TOLD BY THE PT'S SON) THAT THE PT IS ACCEPPTED AT [facility] LOCATED [place] [address] [facility], [place]. CALLED DANTE THE RN FIRE MARSHAL AT THE FACILITY AT [phone]. PER HER THEY ARE NOT EXPECTING A NEW ADMISSION BY THIS NAME.
--- NOTE | 2021-05-26 22:48 | NUR ---
PT SLEEPING, BREATHING EVENLY AND UNLABORED. ATTACHED TO MONITOR.
--- NOTE | 2021-05-26 23:33 | NUR ---
KRISTA TO THE PT'S SON, WINDY. ACORDING TO WINDY, HE DOES NOT WANT TO SEND HIS MOM BACK TO [facility] AND HE HAS SPOKEN TO THE DON AT [facility] AND THEY'RE READY TO ACCEPT THE PT. WINDY WAS INFORMED THAT THE DANTE THE [facility] INTEGRATION ENGINEER IS NOT AWARE OF THE ADMISSION. WINDY WILL TALK TO THE DON AND WILL GET BACK TO US
--- NOTE | 2021-05-27 00:23 | NUR ---
ACCORDING TO THE SON, HE IS NOT ABLE TO GET A HOLD OF RUBI THE DON
--- NOTE | 2021-05-27 00:38 | NUR ---
PT SLEEPING, BREATHING EVENLY AND UNLABORED
--- NOTE | 2021-05-27 01:23 | NUR ---
Pt sleeping, breathing evenly and unlabored. Attached to monitor
--- NOTE | 2021-05-27 02:38 | NUR ---
Patient is resting comfortably in bed with eyes closed. Easily aroused. VSS
--- NOTE | 2021-05-27 04:00 | NUR ---
pt sleeping, attached to monitor and pox.
--- NOTE | 2021-05-27 06:15 | NUR ---
pt sitting watching tv quietly, attached to monitor and pox.
--- NOTE | 2021-05-27 08:11 | NUR ---
CALLED BOTH CM AND INTERVENTION ANALYST
--- NOTE | 2021-05-27 08:32 | NUR ---
[facility] CALLED ETA 30 MINS PER RUDOLPH.
--- NOTE | 2021-05-27 08:32 | NUR ---
SPOKE WITH SON WINDY WHO STATED THAT THE PATIENT SHOULD BE GOING TO [facility] IN [place]. PER [facility] N[facility]SING SUP SHAHBAZ FUENTES THE PATIENT IS ACCEPTED TO [facility] [address].
--- NOTE | 2021-05-27 09:00 | NUR ---
CHANGED DESTINATION TO [facility].
--- NOTE | 2021-05-27 09:06 | NUR ---
REPORT GIVEN TO AMBULANCE STAFF
--- NOTE | 2021-05-27 09:06 | NUR ---
REPORT GIVEN TO NURSE PANG FROM [facility].
[2021-05-27 09:07] VITALS: BP 151/77
== END 2021-05-27 09:07 | disposition home or self-care (01) ==
LOC: ER 17:59
DX: D04.5 Carcinoma in situ of skin of trunk (principal); I10 Essential (primary) hypertension; E11.9 Type 2 diabetes mellitus without complications; Z98.890 Other specified postprocedural states; Z79.899 Other long term (current) drug therapy; Z79.4 Long term (current) use of insulin; Z79.82 Long term (current) use of aspirin